=== PATIENT | female | born 2005 | race Two or more races ===

== ENCOUNTER 2024-05-07 13:08 | Emergency (ER) | payer BC, OTHER ==
[~2024-05-07] VITALS: Ht 162.6 cm; Wt 56.2 kg
[2024-05-07] MEDS: ACETAMINOPHEN 500 MG TAB or CAP PO ONE (13:45)
--- NOTE | 2024-05-07 14:24 | DVH ---
OB ULTRASOUND <14 WEEKS: HISTORY: 11 wk preg vag bleed TECHNIQUE: Multiple real-time grayscale sonographic images of the pelvis with duplex Doppler color f low, spectral and M-mode analysis. TRANSDUCERS: Transabdominal COMPARISON: None FINDINGS: The uterus measures 9.3 x 8.2 x 6.9 cm. No free fluid in the pelvis. The cervix is poorly visualized Right ovary is not visualized. No evidence of adnexal lesions. Left ovary is not visualized. No evidence of adnexal lesions. IUP single fetus at 11 weeks 0 days average ultrasound age based on mean crown-rump length of 4.3 cm and gestational sac size of 5.0 cm heart rate detected at 172 beats per minute. Yolk sac is seen. Amniotic fluid appears within normal limits Iris-gestational space: Small subchorionic hypoechoic focus measuring 1.8 x 0.8 x 1.4 cm. IMPRESSION: IUP single live fetus 11 weeks 0 days AUA corresponding to an NICK of 11/26/2024. Small subchorionic hemorrhage. No other abnormalities are seen.
--- NOTE | 2024-05-07 14:52 | ED.PDOC ---
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 Patient reports she has gone through 3 pads today and noticed amount of bleeding is similar to previous menstrual cycles. Patient denies any abdominal trauma, fever, chills, nausea, vomiting, back pain or dysuria. 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 No medical, surgical history or allergies reported. Chief Complaint: Vaginal Bleed Time Seen by MD: 13:42 Reviewed Notes: Nurses Notes, Medications, Allergies Allergies: Coded Allergies: NO KNOWN ALLERGIES (Unverified , 05/07/24) Home Meds Active Scripts Nitrofurantoin Monohydrate Mac (Macrobid) 100 Mg Cap, 100 MG PO BID for 7 Days, #14 CAP Prov:SHELDON PRADO MD 05/07/24 Acetaminophen (Tylenol Extra Strength) 500 Mg Tab, 1000 MG PO Q6HP PRN, #30 TAB prn pain or fever Prov:SHELDON PRADO MD 05/07/24 Information Source: Patient, Spouse Mode of Arrival: Ambulatory Timing: Hours Severity: Moderate Vaginal Discharge: None Vaginal Lesions: None Bleeding Quality: Bright Red Vaginal Mass: None Onset Of Mass/Bleeding: Spontaneous Sexual Activity: Last Consensual Bovey: Unknown Control: None History of: Current Associated Signs and Symptoms: Vaginal Bleeding, Cramping Past Medical History PAST MEDICAL HISTORY: Denies Surgical History: Denies all surgeries CANCER PROGRAM COORDINATOR History: No Pertinent CANCER PROGRAM COORDINATOR History Family History Family History: Reviewed,noncontributory to illness Social History Smoker: Non-Smoker Alcohol: Denies ETOH Use Drugs: Denies Drug Use Constitutional: denies: chills, diaphoresis, fatigue, fever, malaise, sweats, weakness, others EENTM: denies: blurred vision, double vision, ear bleeding, ear discharge, ear drainage, ear pain, ear ringing, eye pain, eye redness, hearing loss, mouth pain, mouth swelling, nasal discharge, nose bleeding, nose congestion, nose pain, photophobia, tearing, throat pain, throat swelling, voice changes, others Cardiovascular: denies: chest pain, dizzy spells, diaphoresis, Dyspnea on exertion, edema, irregular heart beat, left arm pain, lightheadedness, palpi tations, PND, syncope, others Gastrointestinal: denies: abdomen distended, abdominal pain, blood streaked bowels, constipated, diarrhea, dysphagia, difficulty swallowing, hematemesis, melena, nausea, poor appetite, poor fluid intake, rectal bleeding, rectal pain, vomiting, others Genitourinary: reports: abnormal vagina bleeding, pain, ; denies: burning, dyspareunia, dysuria, flank pain, frequency, hematuria, incontinence, vagina discharge, urgency, others Neurological: denies: dizziness, fainting, headache, left sided numbness, left sided weakness, numbness, paresthesia, pre-existing deficit, right sided numbness, right sided weakness, seizure, speech problems, tingling, tremors, weakness, others Musculoskeletal: denies: back pain, gout, joint pain, joint swelling, muscle pain, muscle stiffness, neck pain, others Integumetry: denies: bruises, change in color, change in hair/nails, dryness, laceration, lesions, lumps, rash, wounds, others Allergic/Immunocompromised: denies: Difficulty Healing, Frequent Infections, Hives, Itching, others Hematologic/Lymphatic: denies: anemia, blood clots, easy bleeding, easy bruising, swollen glands, others Endocrine: denies: excessive hunger, excessive sweating, excessive thirst, excessive urination, flushing, intolerance to cold, intolerance to heat, unexplained weight gain, unexplained weight loss, others Psychiatric: denies: anxiety, bipolar disorder, depression, hopeless, panic disorder, schizophrenia, sleepless, suicidal, others All Other Systems: Reviewed and Negative Physical Exam General Appearance: No Apparent Distress HEENT: Other (Face symmetric, moist mucous membranes) Neck: Full Range of Motion, Normal Inspection Respiratory: Lungs Clear, No Accessory Muscle Use, No Respiratory Distress, Normal Breath Sounds Cardiovascular: No Edema, No JVD, Regular Rate/Rhythm Breast Exam: Deferred Gastrointestinal: Non Tender, Soft Genitalia: Deferred Pelvic: Deferred Rectal: Deferred Extremities: Normal inspection, Normal range of motion, Non-tender, No pedal edema Neurologic: Alert (Oriented x4), Normal Affect, Normal Mood, Other (Ambulatory without difficulty. No gross focal deficit.) Cerebellar Function: NOT DONE Reflexes: NOT DONE Skin: Dry, Normal Color, Warm Lymphatic: NOT DONE Was a procedure done? Was a procedure done?: No Differential Diagnosis (CANCER PROGRAM COORDINATOR) Vaginal Bleeding: - Incomplete, - Inevitable, - Missed, - Threatened, Abruptio Placentae, Blood Loss Anemia, Ectopic , Menstrual Bleeding, UTI X-Ray, Labs, Meds, VS Vital Signs Date Time Temp Pulse Resp B/P (MAP) Pulse Ox O2 Delivery O2 Flow Rate FiO2 05/07/24 16:29 98.0 77 15 110/72 (85) 98 98.0 05/07/24 14:55 97.5 74 18 105/67 (80) 97 97.5 05/07/24 14:55 74 18 97 Room Air 05/07/24 13:36 98.7 93 16 119/86 (97) 100 Lab Test 05/07/24 14:25 05/07/24 14:00 Range/Units White Blood Count 12.9 H 4.4-10.8 10^3/uL Red Blood Count 4.60 4.0-5.20 10^6/uL Hemoglobin 13.7 12.2-16.2 g/dL Hematocrit 40.5 36.0-46.0 % Mean Corpuscular Volume 88.1 80.0-100.0 fL Mean Corpuscular Hemoglobin 29.8 28.0-32.0 pg Mean Corpuscular Hemoglobin Concent 33.9 32.0-36.0 g/dL Red Cell Distribution Width 13.4 11.8-14.3 % Platelet Count 319 140-450 10^3/uL Mean Platelet Volume 9.5 6.9-10.8 fL Neutrophils (%) (Auto) 79.8 37.0-80.0 % Lymphocytes (%) (Auto) 13.1 10.0-50.0 % Monocytes (%) (Auto) 5.8 0.0-12.0 % Eosinophils (%) (Auto) 0.7 0.0-7.0 % Basophils (%) (Auto) 0.6 0.0-2.0 % Neutrophils # (Auto) 10.3 H 1.6-8.6 10 ^3/uL Lymphocytes # (Auto) 1.7 0.4-5.4 10 ^3/uL Monocytes # (Auto) 0.7 0-1.3 10 ^3/uL Eosinophils # (Auto) 0.1 0-0.8 10 ^3/uL Basophils # (Auto) 0.1 0-0.2 10 ^3/uL Nucleated Red Blood Cells 0.1 % Sodium Level 135 L 136-145 mmol/L Potassium Level 3.8 3.5-5.1 mmol/L Chloride Level 102 98-107 mmol/L Carbon Dioxide Level 24 20-31 mmol/L Anion Gap 9 5-15 Blood Urea Nitrogen 6 L 9-23 mg/dL Creatinine 0.53 L 0.550-1.02 mg/dL Glomerular Filtration Rate Calc 135 >90 mL/min BUN/Creatinine Ratio 11.3 10.0-20.0 Serum Glucose 80 74-106 mg/dL Calcium Level 10.1 8.7-10.4 mg/dL Beta HCG, Quantitative 35665.8 H 1.5-4.2 mIU/mL Urine Color Yellow Yellow Urine Clarity Turbid H Clear Urine pH 6.0 5.0-9.0 Urine Specific Laverne 1.027 1.001-1.035 Urine Protein 1+ H Negative Urine Ketones 2+ H Negative Urine Blood 3+ H Negative /uL Urine Nitrite Negative Negative Urine Bilirubin Negative Negative Urine Urobilinogen Normal Negative mg/dL Urine Leukocyte Esterase Negative Negative /uL Urine RBC 481 0 - 4 /hpf Urine Microscopic WBC 2 0-5 /HPF Urine Squamous Epithelial Cells Few <5 /hpf Urine Bacteria Few H None Seen /hpf Urine Hyaline Casts Few 0 - 2 /lpf Urine Mucus Moderate None Seen Urine Glucose Normal Normal mg/dL [place] [address] Ph: [phone] DIAGNOSTIC IMAGING Diagnostic Imaging Report : [id number] Signed PATIENT: ENDY FINLEYACCT: [id number] UNIT: [id number] : 2005 LOC: ER ROOM / BED: / AGE / SEX: 19 / F ADM STATUS: REG ER SERVICE 1345 ORDERING PHYSICIAN: SHELDON PRADO MD PROCEDURE(s): OB4US - OB ULTRASOUND COMP LESS 14WKS REASON: 11 wk preg vag bleed ORDER NUMBER(s): [id number], ACCESSION NUMBER(s): [id number] OB ULTRASOUND <14 WEEKS: HISTORY: 11 wk preg vag bleed TECHNIQUE: Multiple real-time grayscale sonographic images of the pelvis with duplex Doppler color flow, spectral and M-mode analysis. TRANSDUCERS: Transabdominal COMPARISON: None FINDINGS: The uterus measures 9.3 x 8.2 x 6.9 cm. No free fluid in the pelvis. The cervix is poorly visualized Right ovary is not visualized. No evidence of adnexal lesions. Left ovary is not visualized. No evidence of adnexal lesions. IUP single fetus at 11 weeks 0 days average ultrasound age based on mean crown- rump length of 4.3 cm and gestational sac size of 5.0 cm heart rate detected at 172 beats per minute. Yolk sac is seen. Amniotic fluid appears within normal limits Iris-gestational space: Small subchorionic hypoechoic focus measuring 1.8 x 0.8 x 1.4 cm. IMPRESSION: IUP single live fetus 11 weeks 0 days AUA corresponding to an NICK of 11/26/2024. Small subchorionic hemorrhage. No other abnormalities are seen. ATED BY: DAVID CROWELL DO DICTATED DATE/TIME: 05/07/241420 SIGNED BY: DAVID CROWELL DO SIGNED DATE/TIME: 05/07/241420 CC: X-Ray, Labs, Meds, VS Comment 19-year-old female with current approximate 11 week complaining of vaginal bleeding Vitals unremarkable Exam unremarkable Rhythm strip independently interpreted by me: Sinus rhythm, rate 93, no ectopy. Ob ultrasound: IMPRESSION: IUP single live fetus 11 weeks 0 days AUA corresponding to an NICK of 11/26/2024. Small subchorionic hemorrhage. No other abnormalities are seen. CBC remarkable for WBC 12.9, metabolic panel remarkable for sodium 135, serum quantitative hCG 58684 60.8, UA abnormal showing protein, ketones, blood, RBCs, mucus and few bacteria, possibly indicating mild UTI Patient treated with the following in the ED: Tylenol 1 g p.o. On re-evaluation, patient is resting comfortably with stable vitals. She denies any pain. She is hemodynamically stable. Patient appears stable for discharge with close outpatient follow-up with an OBGYN. She will be referred to Dr. Pedro. Rx Macrobid, Tylenol Time of 1ST Reevaluation: 14:48 Reevaluation 1ST: Unchanged Patient Education/Counseling: Diagnosis, Treatment, Prognosis Family Education/Counseling: Diagnosis, Treatment, Prognosis Departure 1 Departure Time of Disposition: 19:00 Impression: Primary Impression: Vaginal bleeding affecting early Additional Impression: Bacteriuria during Disposition: HOME / SELF CARE / HOMELESS Condition: Stable Referrals: ETHAN PEDRO DO Additional Instructions: Your blood tests were unremarkable. Your urine test was abnormal, showing some bacteria, so I have prescribed antibiotics. I have also prescribed pain medication to take for the cramping. Your ultrasound showed a single live at approximately 11 weeks. It also showed a subchorionic hemorrhage, which is a small amount of bleeding where the fetus attaches to the uterus. This may be the cause of your vaginal bleeding. It usually resolves on its own as the baby grows. There is no acute treatment needed at this time. Follow-up with an OBGYN in 1-2 days. You have been referred to Dr. Pedro. [place] [address] Ph: [phone] DIAGNOSTIC IMAGING Diagnostic Imaging Report : [id number] Signed PATIENT: ENDY FINLEY ACCT: [id number] UNIT: [id number] : 2005 LOC: ER ROOM / BED: / AGE / SEX: 19 / F ADM STATUS: REG ER SERVICE 1345 ORDERING PHYSICIAN: SHELDON PRADO MD PROCEDURE(s): OB4US - OB ULTRASOUND COMP LESS 14WKS REASON: 11 wk preg vag bleed ORDER NUMBER(s): [id number], ACCESSION NUMBER(s): [id number] OB ULTRASOUND <14 WEEKS: HISTORY: 11 wk preg vag bleed TECHNIQUE: Multiple real-time grayscale sonographic images of the pelvis with duplex Doppler color flow, spectral and M-mode analysis. TRANSDUCERS: Transabdominal COMPARISON: None FINDINGS: The uterus measures 9.3 x 8.2 x 6.9 cm. No free fluid in the pelvis. The cervix is poorly visualized Right ovary is not visualized. No evidence of adnexal lesions. Left ovary is not visualized. No evidence of adnexal lesions. IUP single fetus at 11 weeks 0 days average ultrasound age based on mean crown- rump length of 4.3 cm and gestational sac size of 5.0 cm heart rate detected at 172 beats per minute. Yolk sac is seen. Amniotic fluid appears within normal limits Iris-gestational space: Small subchorionic hypoechoic focus measuring 1.8 x 0.8 x 1.4 cm. IMPRESSION: IUP single live fetus 11 weeks 0 days AUA corresponding to an NICK of 11/26/2024. Small subchorionic hemorrhage. No other abnormalities are seen. e-Prescriptions Nitrofurantoin Monohydrate Mac (Macrobid) 100 Mg Cap 100 MG PO BID for 7 Days, #14 CAP Prov: SHELDON PRADO MD 05/07/24 Acetaminophen (Tylenol Extra Strength) 500 Mg Tab 1000 MG PO Q6HP PRN, #30 TAB prn pain or fever Prov: SHELDON PRADO MD 05/07/24 Discharged With: Spouse Critical Care Note Critical Care Time?: No Stability Stability form required: No Heart Score Heart Score: Heart Score Response (Comments) Value History N/A 0 EKG N/A 0 Age N/A 0 Risk Factors N/A 0 Troponin N/A 0 Total 0 I personally scribed for SHELDON PRADO MD ([email or web address]) on 05/07/24 at 14:51. Electronically submitted by Amna Lee ([facility]). I personally scribed for SHELDON PRADO MD) on 05/07/24 at 15:07. Electronically submitted by Amna Lee ([facility]). SHELDON PRADO MD May 07, 2024 14:51
[2024-05-07 15:24] LABS: Chloride 102 mmol/L (98-107); Potassium 3.8 mmol/L (3.5-5.1)
[2024-05-07 15:25] LABS: Anion Gap 9 (5-15); Calcium 10.1 mg/dL (8.7-10.4); Carbon Dioxide 24 mmol/L (20-31)
[2024-05-07 15:30] LABS: BUN/Creatinine Ratio 11.3 (10.0-20.0); Glucose 80 mg/dL (74-106)
[2024-05-07 15:33] LABS: Basophils # (auto) 0.1 10 ^3/uL (0-0.2); Basophils % (auto) 0.6 % (0.0-2.0); Eosinophils # (auto) 0.1 10 ^3/uL (0-0.8); Eosinophils % (auto) 0.7 % (0.0-7.0); Hematocrit 40.5 % (36.0-46.0); Hemoglobin 13.7 g/dL (12.2-16.2); Lymphocytes # (auto) 1.7 10 ^3/uL (0.4-5.4); Lymphocytes % (auto) 13.1 % (10.0-50.0); Mean Corpuscular Hemoglobin 29.8 pg (28.0-32.0); Mean Corpuscular Hgb Conc. 33.9 g/dL (32.0-36.0); Mean Corpuscular Volume 88.1 fL (80.0-100.0); Monocytes # (auto) 0.7 10 ^3/uL (0-1.3); Monocytes % (auto) 5.8 % (0.0-12.0); Neutrophils # (auto) 10.3 10 ^3/uL (1.6-8.6); Neutrophils % (auto) 79.8 % (37.0-80.0); Nucleated Red Blood Cells % 0.1 %; Platelet Count (auto) 319 10^3/uL (140-450); Red Cell Distribution Width 13.4 % (11.8-14.3); White Blood Cell 12.9 10^3/uL (4.4-10.8)
[2024-05-07 15:37] LABS: Blood Urea Nitrogen 6 mg/dL (9-23); Sodium 135 mmol/L (136-145)
[2024-05-07 15:54] LABS: Urine Bacteria FEW /hpf (None Seen); Urine Blood 3+ /uL (Negative); Urine Clarity Turbid (Clear); Urine Color Yellow (Yellow); Urine Hyaline Cast FEW /lpf (0 - 2); Urine Mucus MODERATE (None Seen); Urine Protein, UAD 1+ (Negative); Urine Specific Gravity 1.027 (1.001-1.035); Urine Squamous Epithelial Cell FEW /hpf (<5); Urine Urobilinogen Normal (Negative); Urine WBC 2 /HPF (0-5)
[2024-05-07] MEDS ORDERED: ACET-1304 PO (19:36)
[2024-05-07] MEDS ORDERED: NITR-87 PO (19:36)
[2024-05-07 20:08] VITALS: BP 116/69; PULSE 81; RESP 17; TEMP 98.6; O2SAT 98
== END 2024-05-07 20:08 | disposition home or self-care (01) ==
LOC: ER 13:08
DX: O20.8 Other hemorrhage in early pregnancy (principal); R10.2 Pelvic and perineal pain; R82.71 Bacteriuria; Z3A.11 11 weeks gestation of pregnancy
CPT/HCPCS: 36415; 76801; 80048; 81001; 84702; 85025; 86900; 86901